=== PATIENT | female | born 1990 | race Caucasian/White ===

== ENCOUNTER 2021-05-25 10:55 | Emergency (ER) | payer BC ==
[~2021-05-25] VITALS: Ht 160 cm; Wt 56.8 kg
[~2021-05-25 10:55] MED LIST: DICLEGIS PO; MOTRIN 800800 MG/TAB PO; PERCOCET 325 MG1 TA2 PO; ZOFRAN 4MG T4 MG/TAB PO
--- NOTE | 2021-05-25 12:26 | NUR ---
OB was asked to come put pt on toco to determine if ctx are happening. This RN went to ER and put pt. on toco monitor. Abdomen palpated soft. Pt states "I feel like I drink enough water", and when asked last time she had intercourse "It's been awhile". RN explained the purpose of the questions asked. Pt. states no vaginal bleeding noted and no leaking of fluid. States she feels the baby move. 30 min. toco strip completed. No ctx noted on strip and no irritability noted until pt. started vomiting. Pt. states she follows up for [facility] in [place]
[2021-05-25 13:10] LABS: BASO % 0.1 % (0.0-2.0); EOS # 0.1 K/mm3 (0.0-0.7); EOS % 0.5 % (0-4.0); GRAN # 11.5 K/mm3 (1.4-6.5); GRAN % 85.5 % (42.2-75.2); LYMPH # 1.2 K/mm3 (1.2-3.4); LYMPH % 8.7 % (20.0-51.0); MEAN CELL VOLUME 94 fl (80.0-100.0); MEAN CORPUSCULAR HEMOGLOBIN 33 pg (27.0-31.0); MEAN CORPUSCULAR HGB CONC 36 g/dl (33.0-37.0); MEAN PLATELET VOLUME 11.1 fl (7.4-10.4); MONO # 0.6 K/mm3 (0.1-0.6); MONO % 4.5 % (1.7-9.3); PLATELET COUNT 208 K/mm3 (130-400); RED BLOOD COUNT 3.91 M/mm3 (4.10-5.30); REDCELL DISTRIBUTION WIDTH-CV 12.6 % (11.5-14.5)
[2021-05-25 13:13] LABS: HEMATOCRIT 36.6 % (37.0-47.0)
[2021-05-25 14:18] VITALS: BP 118/52; PULSE 85; TEMP 98.2
[2021-05-25 14:25] LABS: ALBUMIN 3.4 gm/dL (3.5-5.0); BILIRUBIN,TOTAL 0.4 mg/dL (0.2-1.2); CALCIUM 9.6 mg/dL (8.4-10.2); CREATININE, serum 0.54 mg/dL (0.57-1.11); POTASSIUM 3.5 mmol/L (3.5-4.5); TOTAL PROTEIN 6.5 gm/dL (6.2-8.1)
== END 2021-05-25 14:19 | disposition home or self-care (01) ==
LOC: COL.ER 10:55
PROVIDERS: Family Medicine
DX: O21.9 Vomiting of pregnancy, unspecified (principal); O26.892 Other specified pregnancy related conditions, second trimester; R10.9 Unspecified abdominal pain; Z3A.20 20 weeks gestation of pregnancy
CPT/HCPCS: J2550; J7120